=== PATIENT | male | born 1980 ===

== ENCOUNTER 2025-01-13 10:34 | Day surgery (SDC) | payer BC ==
[~2025-01-13 10:34] MED LIST: Metoclopramide 10 MG/2 ML SDV IV PRN; Sodium Chloride 0.9% 1,000 ML IV SCH
[2025-01-13] MEDS ORDERED: Metoclopramide 10 MG/2 ML SDV IVPUSH PRN (11:05)
[2025-01-13] MEDS ORDERED: Sodium Chloride 0.9% 1,000 ML IV SCH (11:15)
[2025-01-13] MEDS ORDERED: Propofol 200 MG/20 ML SDV ONE (13:00)
== END 2025-01-13 13:52 | disposition home or self-care (01) ==
LOC: LB.SDS 10:34
PROVIDERS: ATTEND Surgery
DX: Z12.11 Encounter for screening for malignant neoplasm of colon (principal); K52.9 Noninfective gastroenteritis and colitis, unspecified; E78.5 Hyperlipidemia, unspecified; K21.9 Gastro-esophageal reflux disease without esophagitis; Z79.899 Other long term (current) drug therapy; Z87.891 Personal history of nicotine dependence
CPT/HCPCS: 88305; J2704